=== PATIENT | female | born 1980 | race Two or more races ===

== ENCOUNTER → 2018-10-08 16:35 | Outpatient (CLI) | payer OTHER ==
[~2018-10-08 16:35] MED LIST: AMOX1TAB12 PO; CATAFLAM50 MG PO; CLARITIN-D 121 EACH; IBUPROFEN800 MG PO; NORFLEX 100 MG PO; TESSALON PERLE100 MG PO; VOLTAREM 50 MG PO; ZYRTEC10 MG PO
== END | disposition home or self-care (01) ==
LOC: LAB 16:35
DX: J11.1 Influenza due to unidentified influenza virus with other respiratory manifestations (principal); J11.89 Influenza due to unidentified influenza virus with other manifestations

== ENCOUNTER 2019-02-04 06:57 | Outpatient (CLI) | payer OTHER | END 2019-02-04 11:25 | disposition home or self-care (01) | LOC: LAB 06:57 | DX: M54.5 Low back pain (principal); M25.562 Pain in left knee; M25.531 Pain in right wrist; Z00.00 Encounter for general adult medical examination without abnormal findings; E78.49 Other hyperlipidemia; E55.9 Vitamin D deficiency, unspecified; N39.0 Urinary tract infection, site not specified ==

== ENCOUNTER 2019-02-09 14:43 | Outpatient (CLI) | payer OTHER | END 2019-02-09 14:55 | disposition home or self-care (01) | LOC: RAD 14:43 → MAMO-SONO 14:45 → RAD 14:55 | DX: N64.4 Mastodynia (principal) ==